=== PATIENT | female | born 1985 | race Caucasian/White ===

== ENCOUNTER → 2024-02-07 13:53 | Outpatient (CLI) | payer OTHER, SELFPAY ==
[2024-02-07 18:15] LABS: Free T4, Direct Thyroxine 0.85 ng/dL (0.78-2.19); HEMOLYSIS < 15 (0-50)
[2024-02-07 18:19] LABS: Thyroid Stimulating Hormone 1.73 uIU/mL (0.47-4.68)
[2024-02-07 18:43] LABS: Iron 132 ug/dL (37-170)
[2024-02-07 18:52] LABS: Percent Iron Saturation 41 % (15-50); Total Iron Binding Capacity 320 ug/dL (265-497)
[2024-02-07 20:25] LABS: Transferrin 256 mg/dL (206-381)
== END ==
PROVIDERS: PCP Family Medicine; Referring Provider Obstetrics & Gynecology; Visit Provider Obstetrics & Gynecology
DX: L65.9 Nonscarring hair loss, unspecified (principal); L71.0 Perioral dermatitis
CPT/HCPCS: 36415; 83540; 83550; 84439; 84443

== ENCOUNTER → 2025-03-14 09:17 | Outpatient (CLI) | payer OTHER, SELFPAY ==
[2025-03-15 13:41] LABS: Trichomoas vaginalis Negative (Negative)
== END ==
LOC: LAB 09:19
PROVIDERS: PCP Family Medicine; Visit Provider Obstetrics & Gynecology
DX: Z12.4 Encounter for screening for malignant neoplasm of cervix (principal); Z11.51 Encounter for screening for human papillomavirus (HPV)
CPT/HCPCS: 81514